=== PATIENT | male | born 1945 | race Caucasian/White ===

== ENCOUNTER → 2018-02-11 | Outpatient (CLI) | payer OTHER ==
[2018-02-11 17:00] LABS: BASO % 0.4 %; BASO ABS # 0.03 K/uL (0-0.2); EOS % 4.6 %; EOS ABS # 0.39 K/uL (0-0.5); HEMATOCRIT 37.8 % (42-52); HEMOGLOBIN 13.2 g/dL (14.0-18.0); IG# 0.02 K/uL (0.00-0.02); LYMPH % 21.1 %; LYMPH ABS # 1.81 K/uL (1.2-3.4); MEAN CELL VOLUME 90.4 fL (80-100); MEAN CORPUSCULAR HEMOGLOBIN 31.6 pg (25-34); MEAN CORPUSCULAR HGB CONC 34.9 g/dl (32-36); MEAN PLATELET VOLUME 11.8 fL (7.4-10.4); MONO % 7.9 %; MONO ABS # 0.68 K/uL (0.11-0.59); NEUT % 65.8 %; NEUT ABS # 5.63 K/uL (1.4-6.5); PLATELET COUNT 124 K/uL (130-400); RED CELL DISTRIBUTION WIDTH CV 14.1 % (11.5-14.5); RED CELL DISTRIBUTION WIDTH SD 46.5 fL (36.4-46.3); WHITE BLOOD COUNT 8.56 K/uL (4.8-10.8)
[2018-02-11 17:07] LABS: BLOOD UREA NITROGEN 28 mg/dl (7-18); CALCIUM 8.5 mg/dl (8.5-10.1); CARBON DIOXIDE 28 mmol/L (21-32); CREATININE 1.01 mg/dl (0.60-1.40); GLUCOSE 74 mg/dl (70-99); POTASSIUM 4.1 mmol/L (3.5-5.1); SODIUM 139 mmol/L (136-145)
== END | disposition home or self-care (01) ==
LOC: C.LABSPEC 12:50
PROVIDERS: ATTEND Family Medicine
DX: L03.90 Cellulitis, unspecified (principal)